=== PATIENT | male | born 1990 | race Caucasian/White ===

== ENCOUNTER 2018-04-11 12:55 | Emergency (ER) | payer OTHER, MEDICAID, SELFPAY ==
[2018-04-11 13:02] VITALS: BP 140/99; PULSE 99; RESP 18; TEMP 37.3; O2SAT 97
[2018-04-11 14:30] VITALS: BP 121/83; PULSE 69; RESP 18; O2SAT 98
--- NOTE | 2018-04-11 14:44 | ED.DENTAL ---
HPI - Dental/Oral <ARIK Strickland Last Filed: 04/11/18 21:40> General Chief complaint: Dental/Oral Stated complaint: SWOLLEN TONGUE,CANT TALK,DIZZY, SWEATY Time Seen by Provider: 04/11/18 13:32 Source: patient Mode of arrival: ambulatory Limitations: no limitations History of Present Illness HPI Narrative: This 27-year-old male comes in due to tongue pain, lesions and swelling. He initially noticed this 2 days ago. He states that he drank an energy drink prior, but does not think he reacted to something. He denies any recent URI symptoms or fevers. He denies neck pain, swollen glands, other rash or new complaints. Related Data Previous Rx's Medication Instructions Recorded benzocaine [Orabase (benzocaine)] 1 applictn MM QID PRN 4 Days #4 04/11/18 gram nystatin 5 ml PO QID 7 Days #140 ml 04/11/18 Review of Systems <ARIK Strickland Last Filed: 04/11/18 21:40> Review of Systems All systems reviewed & are unremarkable except as noted in HPI and below Exam <Agustina Landa PA-C - Last Filed: 04/11/18 21:40> Narrative Exam Narrative: GENERAL APPEARANCE: Patient sleeping comfortably, in no distress. EYES: PERRL, EOMI. EARS: Normal auditory canals, TMS intact with normal light reflexes. ORAL CAVITY: The anterior tongue is tender, coated with opaque, light loera material, underlying erythema and 2 slightly ulcerated patches noted. Inferior portion of the tongue is normal. Posterior oropharynx appears normal. No gum line lesions NECK/THYROID: Neck supple, full range of motion, no cervical lymphadenopathy. LUNGS: Clear to auscultation bilaterally, clear to percussion, no cough on exam. HEART: RRR without murmur, nl S1, S2, no S3 or S4. Initial Vital Signs Initial Vital Signs: Vital Signs Temperature 99.1 F 04/11/18 13:02 Pulse Rate 99 H 04/11/18 13:02 Respiratory Rate 18 04/11/18 13:02 Blood Pressure 140/99 H 04/11/18 13:02 Pulse Oximetry 97 04/11/18 13:02 <Simón Newell DO - Last Filed: 04/12/18 07:25> Initial Vital Signs Initial Vital Signs: Vital Signs Temperature 99.1 F 04/11/18 13:02 Pulse Rate 99 H 04/11/18 13:02 Respiratory Rate 18 04/11/18 13:02 Blood Pressure 140/99 H 04/11/18 13:02 Pulse Oximetry 97 04/11/18 13:02 Course <Agustina Landa PA-C - Last Filed: 04/11/18 21:40> Vital Signs - 8 hr 04/11/18 14:30 Pulse Rate 69 Respiratory Rate 18 Blood Pressure [Left Arm] 121/83 H Pulse Oximetry 98 <Simón Newell DO - Last Filed: 04/12/18 07:25> Vital Signs - 8 hr 04/11/18 14:30 Pulse Rate 69 Respiratory Rate 18 Blood Pressure [Left Arm] 121/83 H Pulse Oximetry 98 Discharge Plan Departure Patient Disposition: Home, Self-Care Clinical Impression: Mucositis oral Discharge Date/Time: 04/11/18 15:11 Interventions: ED Discharge Assessment Last Done: 04/11/18 15:10 Instructions: DI for Aphthous Ulcers (Canker Sores) Activity Restrictions/Additional Instructions: You appear to have general irritation on the tongue called mucositis. Sometimes this is caused by a yeast infection, so I have given you medication for this call nystatin, as well as medicine to help with pain and canker sores which to have some of as well. Please use these as instructed. Have soft foods. Drink water and avoid acidic foods or energy drinks or other food or drinks with additives that may irritate this. Return if any acutely worsening symptoms Prescriptions: New nystatin 100,000 unit/mL suspension 5 ml PO QID 7 Days Qty: 140 RF: 0 benzocaine [Orabase (benzocaine)] 20 % paste 1 applictn MM QID PRN (Reason: mouth irritation) 4 Days Qty: 4 RF: 0 <Simón Newell DO - Last Filed: 04/12/18 07:25> Cosign ED Attending Zoieature Attestation: I was available for consultation during this patient's emergency department encounter
== END 2018-04-11 15:11 | disposition home or self-care (01) ==
PROVIDERS: Emergency Provider Internal Medicine
DX: K12.30 Oral mucositis (ulcerative), unspecified (principal)
CPT/HCPCS: 99282

== ENCOUNTER 2019-06-20 11:45 | Emergency (ER) | payer SELFPAY ==
[2019-06-20 11:57] VITALS: BP 122/86; PULSE 92; RESP 19; TEMP 37.1; O2SAT 98; BMI 23.6
--- NOTE | 2019-06-20 12:03 | DI.RAD.S_ITS ---
PROCEDURE: XR FOOT RT MIN 3V INDICATIONS: cut with broken ceramic TECHNIQUE: 3 views of the foot were acquired. COMPARISON: None. FINDINGS: Bones: No fractures or dislocations. No suspicious bony lesions. Soft tissues: No radiopaque foreign bodies. IMPRESSION: 1. No fracture or radiopaque foreign bodies. Dictated by: Rich Alves M.D. on 06/20/2019 at 11:34 Approved by: Rich Alves M.D. on 06/20/2019 at 11:35
[2019-06-20] MEDS: TET,DIPH,PERTUSS(ACELL),VAC/PF 0.5 ML SYRINGE IM (13:37)
--- NOTE | 2019-06-20 13:54 | ED.WOUNDLAC ---
HPI - Wound/Laceration <FERNY Isbell - Last Filed: 06/20/19 15:42> General Chief Complaint: Wound/Laceration Stated Complaint: Rt foot injury Time Seen by Provider: 06/20/19 12:59 Source: patient Mode of arrival: Wheelchair Limitations: no limitations History of Present Illness HPI narrative: The patient is a 28-year-old male current smoker of heroin abuse who presents with a chief complaint of a laceration to his right foot. He states he started Suboxone today, was running to the toilet in order to vomit, and cut his foot on a piece of ceramic. The ceramic broke. He does not know his last tetanus. He states he has full range of motion of his right foot. He states he cut on the top of his foot. The patient states that he is here for his laceration, not for detox. Related Data Allergies Allergy/AdvReac Type Severity Reaction Status Date / Time No Known Drug Allergies Allergy Verified 06/20/19 12:02 Review of Systems <FERNY Isbell - Last Filed: 06/20/19 15:42> Review of Systems Narrative: GENERAL: Denies chills, fatigue, malaise, fever, sweats. HEENT: Denies sinus pain, ear pain, sore throat, difficulty swallowing, dizziness. RESPIRATORY: Denies dyspnea, cough, wheezing, hemoptysis, sputum. CARDIOVASCULAR: Denies chest pain, palpitations, orthopnea, edema, GASTROINTESTINAL: Denies nausea, vomiting, abdominal pain, diarrhea, constipation, melena. : Denies dysuria, frequency, incontinence, hematuria, urinary retention. MUSCULOSKELETAL: See HPI SKIN: See HPI NEUROLOGIC: Denies weakness, headache, numbness, change in speech, confusion, seizures, incoordination. PSYCHIATRIC: No concerning psychosocial issues. 12 point review of systems is negative except for those stated above PFSH <FERNY Isbell - Last Filed: 06/20/19 15:42> Medical History (Updated 06/20/19 @ 13:59 by FERNY Isbell) Healthy adult male (Chronic) Social History Smoking Status: Current some day smoker Social History Smoking Status: Current some day smoker Exam <FERNY Isbell - Last Filed: 06/20/19 15:42> Narrative Exam Narrative: GENERAL: This is a well-nourished, well-developed patient, appears anxious HEAD: Atraumatic. Normocephalic. No temporal or scalp tenderness. EYES: Pupils equal round and reactive. Extraocular motions intact. No scleral icterus. No injection or drainage. ENT: Nose without bleeding, purulent drainage or septal hematoma. Throat without erythema, tonsillar hypertrophy or exudate. Uvula midline. Airway patent. NECK: Trachea midline. No JVD or lymphadenopathy. Supple, nontender, no meningeal signs. CARDIOVASCULAR: Regular rate and rhythm RESPIRATORY: No cough. No increased respiratory effort. No accessory muscle use. EXTREMITIES: No clubbing, cyanosis, or edema. No joint tenderness, effusion, or edema noted. Full range of motion noted right foot. Positive pedal pulses right foot. Capillary refill less than 2 seconds. BACK: Nontender without deformity or crepitance. No flank tenderness. NEURO: AOx3. SKIN: 1 cm laceration on anterior aspect of right foot, which is well approximated. No active bleeding. No obvious muscle or tendon involvement. Initial Vital Signs Initial Vital Signs: Vital Signs Temperature 98.8 F 06/20/19 11:57 Pulse Rate 92 H 06/20/19 11:57 Respiratory Rate 06/20/19 11:57 Blood Pressure 122/86 06/20/19 11:57 Pulse Oximetry 98 06/20/19 11:57 <Nabor Shrestha DO - Last Filed: 06/21/19 15:47> Initial Vital Signs Initial Vital Signs: Vital Signs Temperature 98.8 F 06/20/19 11:57 Pulse Rate 92 H 06/20/19 11:57 Respiratory Rate 06/20/19 11:57 Blood Pressure 122/86 06/20/19 11:57 Pulse Oximetry 98 06/20/19 11:57 Procedures <FERNY Isbell - Last Filed: 06/20/19 15:42> Laceration Repair Laceration 1: Site: lower extremity Side (If applicable): right Size (cm): 1 Description: linear Depth: simple, single layer Local Anesthetic: lidocaine 1% and with bicarb Amount of anesthesia used (mL): 2 Pre-repair: wound explored, irrigated extensively (With Hibiclens, iodine) and deep structures intact Skin layer closed with: nylon Size (cm): 4-0 Number of sutures: 3 Technique: simple, interrupted Course <FERNY Isbell - Last Filed: 06/20/19 15:42> Orders Ordered: Discontinued Medications Diphtheria/Tetanus/Acell Pertussis (Adacel) 0.5 ml IM .ONCE ONE Stop: 06/20/19 12:05 Last Admin: 06/20/19 13:37 Dose: 0.5 ml Documented by: KENNETHARRINGTO Lidocaine/Sodium Bicarbonate (Buffered Lidocaine 5ml Syringe) 5 ml INJ NOW ONE Stop: 06/20/19 13:13 Vital Signs Vital signs: Vital Signs - 8 hr 06/20/19 11:57 06/20/19 14:05 Temperature 98.8 F Pulse Rate 92 H 88 Respiratory Rate 19 18 Blood Pressure 122/86 120/76 Pulse Oximetry 98 99 <Nabor Shrestha DO - Last Filed: 06/21/19 15:47> Orders Ordered: Discontinued Medications Diphtheria/Tetanus/Acell Pertussis (Adacel) 0.5 ml IM .ONCE ONE Stop: 06/20/19 12:05 Last Admin: 06/20/19 13:37 Dose: 0.5 ml Documented by: KENNETHARRINGTO Lidocaine/Sodium Bicarbonate (Buffered Lidocaine 5ml Syringe) 5 ml INJ NOW ONE Stop: 06/20/19 13:13 Vital Signs Vital signs: Vital Signs - 8 hr 06/20/19 11:57 06/20/19 14:05 Temperature 98.8 F Pulse Rate 92 H 88 Respiratory Rate 19 18 Blood Pressure 122/86 120/76 Pulse Oximetry 98 99 MDM - Wound/Laceration <FERNY Isbell - Last Filed: 06/20/19 15:42> Imaging Data Foot x-ray: Radiologist's impression: [address] [address] XRay Report Signed Patient: Jason Adams [facility]#: [id number] : 1990Acct:[id number] Age/Sex: 28 / MDate of Service: 06/20/19 Loc: ED Accession Number: [id number] Procedure: XR foot RT min 3V Ordering Provider: Sophie HedrickBC PROCEDURE: XR FOOT RT MIN 3V INDICATIONS: cut with broken ceramic TECHNIQUE: 3 views of the foot were acquired. COMPARISON: None. FINDINGS: Bones: No fractures or dislocations. No suspicious bony lesions. Soft tissues: No radiopaque foreign bodies. IMPRESSION: 1. No fracture or radiopaque foreign bodies. Dictated by: Rich Alves M.D. on 06/20/2019 at 11:34 Approved by: Rich Alves M.D. on 06/20/2019 at 11:35 [facility] Narrative Medical decision making narrative: The patient is a 28-year-old male who presents with a chief complaint of laceration. It was closed as per procedural note. The patient has no obvious foreign bodies on x-ray, the wound was copiously cleansed with Hibiclens as well as profound solution. His tetanus was updated. I discussed at length monitoring for signs and symptoms of infection such as redness pus discharge etc. Patient states understanding of monitoring for signs and symptoms of infection, not submerging his foot dirty water, following up for suture removal in 8-10 days. He has no questions or concerns upon discharge and states understanding of this plan of care as well as return precautions. Discharge Plan Departure Patient Disposition: Home Clinical Impression: Laceration Discharge Date/Time: 06/20/19 14:05 Instructions: How to Care for a Laceration After Repair, DI for Laceration Repair -- Simple Activity Restrictions/Additional Instructions: Please keep up the good work with your detox. I have given the contact information for the [facility] health patient resource coordinator, who can help you identify primary care provider. Today we did an x-ray, which shows no foreign body in her foot. We updated your tetanus. Please follow up for suture removal in 7-10 days. Please monitor for signs of infection such as redness pus etc. Please be evaluated if any of these occur. Referrals: [facility] [Outside]
[2019-06-20 14:05] VITALS: BP 120/76; PULSE 88; RESP 18; O2SAT 99
== END 2019-06-20 14:05 | disposition home or self-care (01) ==
PROVIDERS: Emergency Provider Nurse Practitioner Family
DX: S91.311A Laceration without foreign body, right foot, initial encounter (principal); Z23 Encounter for immunization
CPT/HCPCS: 12001; 73630; 90471; 99283; 90715